=== PATIENT | male | born 1955 | race Two or more races ===

== ENCOUNTER 2018-11-08 15:14 | Emergency (ER) | payer MEDICARE, OTHER ==
[2018-11-08] MEDS: ACETAMINOPHEN 500 MG TAB PO (15:41)
== END 2018-11-08 17:10 | disposition home or self-care (01) ==
LOC: FTE 15:14
DX: S60.111A Contusion of right thumb with damage to nail, initial encounter (principal); I10 Essential (primary) hypertension; H66.91 Otitis media, unspecified, right ear; W23.0XXA Caught, crushed, jammed, or pinched between moving objects, initial encounter; Y92.810 Car as the place of occurrence of the external cause; Z79.82 Long term (current) use of aspirin
CPT/HCPCS: 11740; 73140; 99283-25

== ENCOUNTER 2018-11-17 20:36 | Emergency (ER) | payer SELFPAY, OTHER, MEDICARE | END 2018-11-17 21:30 | disposition left against medical advice (07) | LOC: FTE 20:36 | DX: Z53.21 Procedure and treatment not carried out due to patient leaving prior to being seen by health care provider (principal) ==

== ENCOUNTER 2018-11-20 07:47 | Emergency (ER) | payer MEDICARE, OTHER ==
[2018-11-20] MEDS: NICARDipine HCL 30 MG CAPSULE PO (08:19)
== END 2018-11-20 08:52 | disposition home or self-care (01) ==
LOC: FTE 07:47
DX: I10 Essential (primary) hypertension (principal); Z79.82 Long term (current) use of aspirin
CPT/HCPCS: 30903; 99283-25